=== PATIENT | female | born 1965 | race Caucasian/White ===

== ENCOUNTER 2022-06-27 20:47 | Emergency (ER) | payer BC, SELFPAY ==
--- NOTE | 2022-06-27 20:45 | RT.EKG_ITS ---
APPROVED REPORT Exam: Resting ECG Reason for Exam: chest pressure Patient Location: E HR:80 bpm ECG Measurements Heart Rate 80 AXIS WA 103 P -65 QRSd 79 QRS 60 QT 383 T 79 QTc 443 Conclusion NSR, no acute st changes
[2022-06-27 20:58] VITALS: BP 143/81; PULSE 90; RESP 20; O2SAT 96
--- NOTE | 2022-06-27 21:00 | DI.RAD_ITS ---
Exam(s) XR PORTABLE CHEST AP EXAM: XR PORTABLE CHEST AP CLINICAL HISTORY: cough, fever at home TECHNIQUE: 2D digital imaging was performed of the chest. One image was obtained. An AP view was ob tained. COMPARISON: No exams were available for comparison FINDINGS: MEDIASTINUM: Normal. HEART: Normal. PULMONARY VASCULATURE: Normal. LUNGS: There is a question of increased lung markings in the retrocardiac region on the left. No oth er focal consolidating infiltrates are seen. PLEURAL SPACE: No pleural effusion or pneumothorax. BONE:Within normal limits for the patient's age. OTHER FINDINGS:Normal. IMPRESSION: Increased lung markings in the left lung base posterior to the heart which may represent an infiltrat e. Please correlate clinically. PA and lateral view of the chest may be considered for further eval uation. DATA REPOSITORY: RADIATION DOSE DELIVERED:
--- NOTE | 2022-06-27 21:09 | ED.GENADUL_ITS ---
Discharge Plan Disposition Patient Disposition: Home Condition: Improving Discharge Details Clinical Impression: COVID-19 Primary Care Provider: None,None ED Provider: Leo Davies Home Meds and New Rx's Prescriptions: New hydrocodone-acetaminophen 5-325 mg tablet 1 tab PO BID PRN (Reason: pain) Qty: 5 0RF azithromycin 250 mg tablet 250 mg PO DAILY 4 Days Qty: 4 0RF Rx Instructions: start on day 2 of therapy Continued thyroid (pork) [[place] Thyroid] 60 mg Tablet 60 mg PO DAILY Discharge Instructions Instructions: Viral Syndrome (ED) Additional Instructions: Daily dose of vitamin C, vitamin D, and zinc may help your symptoms. Ibuprofen as needed for aches, pains or fever. Continue your efforts to decrease or eliminate smoking. May use the provided hydrocodone with Tylenol if needed for severe pain or coughing. Follow-up with regular doctor if not improved in 5 days time. Stand Alone Forms: Work Release Medical Decision Making 57-year-old female presents from home complaining of 4 days of cough, congestion, subjective fever and chills. Positive sick contacts at work. She is immunized against COVID and reports negative test at home. She reports some production of sputum with coughing. She is a smoker. Vital signs are unremarkable. No wheezing and she is oxygenating normally. Portable chest x-ray obtained. There is patchy left lower lobe infiltrate present. Viral swab positive for COVID. Patient consented for the use of a small number of hydrocodone if needed for cough and discomfort. She is not currently interested in the use of Paxlovid. We will add a Z-Alexi for suprainfection with bronchitis given that she is a smoker. Counseled on home care. HPI General Mode of arrival: ambulatory . Date/Time Provider Initiated Documentation: 06/27/22 20:52 . Limitations to Documentation: no limitations . Information obtained by: patient . History of Present Illness 57 year old F presents to the emergency department with the chief complaint of Cough, congestion, fever, described as moderate, and is localized to the chest. Patient started experiencing this day(s) and it has been constant. No relieving factors improve symptom(s), No exacerbating factors reported . Patient notes cough and fever/chills; denies shortness of breath. Patient did receive the following treatments prior to arrival, none Related Data Home Medications Medication Instructions Recorded Confirmed azithromycin 250 mg tablet 250 mg PO DAILY 4 days #4 tabs 06/27/22 hydrocodone 5 mg-acetaminophen 325 1 tab PO BID PRN pain #5 tabs 06/27/22 mg tablet thyroid (pork) 60 mg tablet 60 mg PO DAILY 06/27/22 06/27/22 ([place] Thyroid) Previous Rx's Medication Instructions Recorded azithromycin 250 mg tablet 250 mg PO DAILY 4 days #4 tabs 06/27/22 hydrocodone 5 mg-acetaminophen 325 1 tab PO BID PRN pain #5 tabs 06/27/22 mg tablet Allergies Allergy/AdvReac Type Severity Reaction Status Date / Time Sulfa (Sulfonamide Allergy Unverified 06/27/22 21:01 Antibiotics) General Stated Complaint: RespSymp KACIE: 3 Review of Systems Narrative: 6 systems reviewed and otherwise negative. Immunized against COVID. Sick contacts at work [facility] All Active Problems (Updated 06/27/22 @ 21:59 by Leo Davies MD) COVID-19 (Acute) Surgical History History of cholecystectomy History of hysterectomy History of tonsillectomy Social History Smoking/Tobacco Use Status: Current every day Tobacco Type: cigarettes Smoking risk assessment performed?: Yes Alcohol Intake: never Drug use: Never Substance use type: does not use Do you feel safe at home: Yes Do you feel safe in your relationship?: Yes Exam Narrative Exam Narrative: GEN: awake, alert, oriented 3. Pleasant, well groomed, interactive. HEAD: Normocephalic, atraumatic ENT: Mucous membranes moist, oropharynx unremarkable, tympanic membrane's clear bilaterally external ear exam unremarkable EYES: PERRL, EOMI NECK: Full ROM, no RENETTA, no menigismus CHEST/RESP: Mild tenderness posterior musculature, clear to auscultation bilateral, cough noted CARDIOVASCULAR: RRR, no murmur, rub alek. 2+ Rad pulse bilateral ABDOMEN: Soft, nontender, no mass. +Bowel sounds EXT: Full ROM, no edema, no rash Neuro: Grossly normal neurologic exam, conversant, interactive. Psych: Speech fluent, thoughts congruent, affect normal Course Vital Signs Vital signs: Vital Signs Pulse 90 06/27/22 20:58 Respiratory Rate 20 06/27/22 20:58 Blood Pressure 143/81 H 06/27/22 20:58 Pulse Oximetry 96 06/27/22 20:58 Pulse 90 06/27/22 20:58 Respiratory Rate 20 06/27/22 20:58 Respiratory Effort Normal, Non-Labored 06/27/22 21:04 Blood Pressure 143/81 H 06/27/22 20:58 Blood Pressure Position Sitting 06/27/22 20:58 Pulse Oximetry 96 06/27/22 20:58 Oxygen Delivery Method Room Air 06/27/22 20:58 Oxygen Flow Rate 0 06/27/22 20:58 Pain Level 8 06/27/22 20:58
[2022-06-27 21:17] VITALS: TEMP 37.3
[2022-06-27 21:52] LABS: Influenza A PCR Negative (Negative); Influenza B PCR Negative (Negative); RSV PCR Negative (Negative)
[2022-06-27 21:53] LABS: COVID-19 PCR Positive (Negative); Source Nasopharynx
--- NOTE | 2022-06-27 22:06 | DI.VRAD_ITS ---
PROCEDURE INFORMATION: Exam: XR Chest Exam date and time: 06/27/2022 9:28 PM Age: 57 years old Clinical indication: Cough and fever; Patient HX: Cough, fever at home TECHNIQUE: Imaging protocol: Radiologic exam of the chest. Views: 1 view. COMPARISON: No relevant prior studies available. FINDINGS: Lungs: Patchy infiltrate left lower lobe of the lung retrocardiac region may represent atelectasis versus pneumonia. The pulmonary vasculature is normal. Pleural spaces: There is no evidence of pneumothorax. There are no pleural effusions present. Heart/Mediastinum: The cardiac silhouette is within normal limits. The mediastinum is normal. Bones/joints: The spine, sternum, ribs, and pectoral girdles show no evidence of acute abnormality Other findings: There are no soft tissue masses or calcifications. IMPRESSION: Patchy infiltrate left lower lobe of the lung retrocardiac region may represent atelectasis versus pneumonia. Dictated and Authenticated by: Claudio Alberto MD. Ordering:KENNETH Bailey MD
[2022-06-27] MEDS: HYDROcodone 5/Acetaminophen 325 TAB PO (22:20)
[2022-06-27] MEDS: Azithromycin 250 MG TAB 500 MG PO (22:21)
[2022-06-27 22:27] VITALS: BP 139/86; PULSE 81; RESP 20; O2SAT 99
== END 2022-06-27 22:29 | disposition home or self-care (01) ==
PROVIDERS: Emergency Provider Emergency Medicine
DX: U07.1 COVID-19 (principal); F17.210 Nicotine dependence, cigarettes, uncomplicated
CPT/HCPCS: 87637; 93005; 99284; 71045; 93010; 99285

== ENCOUNTER 2022-08-17 09:46 | Emergency (ER) | payer BC, SELFPAY ==
[2022-08-17 09:48] VITALS: BP 173/86; PULSE 95; RESP 16; TEMP 36.6; O2SAT 98
--- NOTE | 2022-08-17 10:02 | ED.GENADUL_ITS ---
Discharge Plan Disposition Patient Disposition: Home Condition: Improving Discharge Details Clinical Impression: Low back pain, Right lumbar radiculopathy, Lumbar disc herniation Primary Care Provider: Unknown,Unknown ED Provider: Laxmi Ramirez Home Meds and New Rx's Prescriptions: New methocarbamol 500 mg tablet 500 mg PO Q6H PRN (Reason: muscle spasm) Qty: 14 0RF prednisone 20 mg tablet See Rx Instructions .ROUTE .COMPLEX Qty: 36 0RF Rx Instructions: Take 3 tabs daily for 6 days, then 2 tabs daily for 6 days, then 1 tab daily for 6 days. Continued [place] Thyroid 60 mg Tablet 60 mg PO DAILY cyclobenzaprine 5 mg Tablet 5 - 10 mg PO TID PRN Discharge Instructions Instructions: Lumbar Disc Herniation (ED), Low Back Strain (ED), Lumbar Radiculopathy (ED) Additional Instructions: Your MRI today noted severe central canal stenosis and narrowing at L3-4 secondary to degenerative disc changes as well as disc herniation at L3-4 but no evidence of acute concerning compression. Apply ice to the affected area several times daily for 20 minutes at a time. Alternate tylenol and motrin as needed and directed for pain. Take the oxycodone for pain not relieved with Tylenol or Motrin. Prescriptions for steroids and muscle relaxers have been sent electronically to your pharmacy. Follow-up with your primary care doctor in 1 week. Return to the emergency department with any worsening or new concerning symptoms. Discharge Data Discharge Date/Time-TO BE ENTERED AT DEPARTURE: 08/17/22 15:07 Discharge Physician: Laxmi Ramirez Medical Decision Making 57-year-old female with a history of morbid obesity, hypothyroidism and lumbar fusion 14 years ago presents for midline lower back pain with radiation of pain to her right buttock and leg and right posterior thigh tingling since a mechanical injury at work 1 month ago now with stool incontinence and saddle anesthesia over the past few days. Patient able to ambulate into the ED. She has tenderness to her midline and bilateral lumbar paraspinal region. She has no obvious focal deficits on exam. She has normal rectal tone and perineal sensation. Consider cauda equina syndrome. We will give a dose of IM Toradol, p.o. oxycodone, Valium and prednisone and refer for lumbar spine MRI. 1303 --patient reassessed and she feels better. MRI results pending. 1430 --MRI resulted and notes severe central canal stenosis and neural foraminal narrowing at L3-4 secondary to combination of degenerative disc changes and facet degenerative changes in addition to L3-4 broad-based posterior disc bulging. No evidence of compression per discussion with Dr. Quigley. 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 Patient reassessed and she feels better and feels comfortable going home. We will send a prescription for steroids and muscle relaxers to her pharmacy. She was given oxycodone bottle to go. Patient placed on care management list to arrange for a follow-up appointment with a primary care doctor in 1 to 2 weeks for reevaluation and for referral for physical therapy or cortisone injection if indicated. Medical Records Medical records reviewed: Yes I reviewed the patient's medical records. Imaging Data Radiologic Study: Radiologist's impression: MR LUMBAR SPINE WO CLINICAL HISTORY: ? low back pain s/p twisting inj; r/o cauda equina.? TECHNIQUE:? Multiplanar multisequence MRI of the Lumbar spine was performed. COMPARISON:? CR,XR XR PORTABLE CHEST AP from 06/27/2022 FINDINGS: Bones: The last intervertebral disc space is designated the L5/S1 level for the numbering purpose of this examination. ? Mild compression of the T11 vertebral body which appears old..? Alignment is satisfactory. The marrow signal characteristics are unremarkable. Cord: The conus tip ends at the T12 level. ? It is of normal size and signal intensity. T11-12: Marked loss of disc height and endplate osteophytes are severe left and moderate right neural foraminal narrowing.? No significant central canal stenosis. T12-L1: No disc herniations or bulges are present. No central spinal canal or neural foraminal stenosis. L1-2: No disc herniations or bulges are present. No central spinal canal or neural foraminal stenosis. L2-3: No disc herniations or bulges are present. No central spinal canal or neural foraminal stenosis. L3-4: Broad-based posterior disc bulging.? Prominent facet osteophytes and ligamentous hypertrophy combining with disc bulging to produce severe central canal stenosis.? [id number] bilateral neural foraminal narrowing. L4-5: Posterior fusion hardware no disc herniations or bulges are present. No central spinal canal or neural foraminal stenosis. L5-S1: Mild disc bulging.? Mild left neural foraminal narrowing.? No central canal stenosis. The visualized SI joints and sacrum are well maintained. Soft tissues: The paraspinal soft tissues are unremarkable. IMPRESSION: Posterior fusion at L4-5.? This level is unremarkable. Severe central stenosis canal stenosis and neural foraminal narrowing at L3-4 secondary to combination of degenerative disc changes and facet degenerative changes. HPI General Mode of arrival: ambulatory . Date/Time Provider Initiated Documentation: 08/17/22 10:00 . Limitations to Documentation: no limitations . Information obtained by: patient . HPI Narrative: Patient is a 57-year-old female with a history of obesity, hypothyroidism and lumbar fusion 14 years ago presents with midline lower back pain with radiation to her right leg for the past month after an injury at work. Patient states she was pushing a [employer] for a patient at [facility] when her foot became caught in the bars and she fell forward and onto a patient bed in order to avoid falling onto the patient. She states she had sudden onset of midline lower back and tailbone pain with radiation down her right buttock and leg down to her ankle. She states she also has intermittent tingling in her right posterior thigh. She states over the last few days she has also noticed tingling and numbness in the perineum and stool incontinence yesterday. She states she was seen at urgent care at the time of the injury and given prednisone and Flexeril which helped briefly but then the pain returned after she was finished. She has not had any imaging since this injury. She was driven here to the emergency department. Related Data Home Medications Medication Instructions Recorded Confirmed thyroid (pork) 60 mg tablet 60 mg PO DAILY 06/27/22 08/17/22 ([place] Thyroid) cyclobenzaprine 5 mg tablet 5 - 10 mg PO TID PRN 08/17/22 08/17/22 methocarbamol 500 mg tablet 500 mg PO Q6H PRN muscle spasm #14 08/17/22 tabs prednisone 20 mg tablet See Rx Instructions .Route 08/17/22 .COMPLEX #36 tabs Previous Rx's Medication Instructions Recorded methocarbamol 500 mg tablet 500 mg PO Q6H PRN muscle spasm #14 08/17/22 tabs prednisone 20 mg tablet See Rx Instructions .Route 04/13/23 .COMPLEX #36 tabs Allergies Allergy/AdvReac Type Severity Reaction Status Date / Time Sulfa (Sulfonamide Allergy Unverified 08/17/22 10:16 Antibiotics) General Stated Complaint: Nk/Back Pain KACIE: 3 Review of Systems All systems reviewed & are unremarkable except as noted in HPI and below Constitutional Constitutional: Reports as per HPI, Denies chills and Denies fever(s) Eyes Eyes: Denies blurry vision ENT Ears, Nose, Mouth, and Throat: Denies dizziness, Denies sore throat and Denies throat swelling Cardiovascular Cardiovascular: Denies chest pain and Denies dyspnea Respiratory Respiratory: Denies cough and Denies dyspnea Gastrointestinal Gastrointestinal: Denies abdominal pain, Reports fecal incontinence, Denies diarrhea and Denies vomiting Genitourinary Genitourinary: Denies hematuria, Denies dysuria and Reports urinary incontinence Musculoskeletal Musculoskeletal: Reports back pain, Denies numbness and Reports tingling Integumentary/Breasts Skin/Breast: Denies lesions and Denies rash Neurologic Neurologic: Denies dizziness, Denies localized weakness, Denies numbness and Reports tingling Allergic/Immunologic Allergic/Immunologic: Denies throat swelling PFSH All Active Problems (Updated 08/17/22 @ 14:50 by Laxmi Ramirez DO) Low back pain (Acute) Right lumbar radiculopathy (Acute) Lumbar disc herniation (Acute) COVID-19 (Acute) Medical History (Updated 08/17/22 @ 14:50 by Laxmi Ramirez DO) Hypothyroidism Surgical History (Updated 08/17/22 @ 10:46 by Laxmi Ramirez DO) History of cholecystectomy History of hysterectomy History of lumbar fusion History of tonsillectomy Social History Smoking/Tobacco Use Status: Current every day Tobacco Type: cigarettes Smoking risk assessment performed?: Yes Alcohol Intake: never Drug use: Never Substance use type: does not use Do you feel safe at home: Yes Do you feel safe in your relationship?: Yes Exam Const General: cooperative, healthy appearing and no acute distress Orientation: alert, awake and oriented x3 HENMT Head: normal to inspection Face and sinus: normal facial exam Eyes General: appearance normal, both eyes and all related structures Pupils: PERRL EOM: EOM intact bilaterally Neck Neck: normal visual inspection and No submandibular swelling Lymphatic: no lymphadenopathy noted Chest Chest: normal inspection of the chest and no tenderness Resp Effort & Inspection: normal respiratory effort and able to speak in complete sentences Auscultation: clear to auscultation bilaterally Cardio Rate: regular rate Rhythm: regular rhythm GI Inspection: normal to inspection Palpation: soft, not firm, not rigid and nontender Auscultation: hypoactive bowel sounds Rectal Exam - female: normal sphincter tone Back/Spine/Pelvis Thoracic/Lumbar Spine: thoracic and lumbar spine normal to inspection, paraspinal tenderness (b/l lumbar), No thoracic spinal tenderness and lumbar spinal tenderness Skin General skin exam: no rashes or lesions noted Neuro General: patient alert, patient awake, patient oriented x3, moves all extremities and no meningeal signs Cognition: normal cognition Speech: speech normal Motor: muscle tone normal throughout and strength 5/5 throughout Sensory Exam: no sensory deficits noted DTR's: Rt Patellar: 1+, Lt Patellar: 1+, Rt Ankle: 1+ and Lt Ankle: 1+ Plantar Reflexes: Equivocal: bilateral (negative babinski b/l ) Extrem General: normal to inspection, full ROM, capillary refill normal, no calf tenderness bilaterally and no edema Other: Bilateral distal lower extremity pulses intact. Psych Appearance: grossly normal Mental Status: mental status grossly normal Speech and Movement: speech and movement normal Affect: normal affect Course Vital Signs Vital signs: Vital Signs Temperature 97.9 F 08/17/22 09:48 Pulse 95 H 08/17/22 09:48 Respiratory Rate 16 08/17/22 09:48 Blood Pressure 173/86 H 08/17/22 09:48 Pulse Oximetry 98 08/17/22 09:48 Temperature 97.9 F 08/17/22 09:48 Temperature Source Skin 08/17/22 09:48 Pulse 95 H 08/17/22 09:48 Respiratory Rate 16 08/17/22 09:48 Blood Pressure 173/86 H 08/17/22 09:48 Blood Pressure Position Sitting 08/17/22 09:48 Pulse Oximetry 98 08/17/22 09:48 Oxygen Delivery Method Room Air 08/17/22 09:48 Oxygen Flow Rate 0 08/17/22 09:48 Pain Level 8 08/17/22 09:48
--- NOTE | 2022-08-17 10:30 | DI.MRI_ITS ---
Exam(s) MR LUMBAR SPINE WO EXAM: MR LUMBAR SPINE WO CLINICAL HISTORY: low back pain s/p twisting inj; r/o cauda equina. TECHNIQUE: Multiplanar multisequence MRI of the Lumbar spine was performed. COMPARISON: CR,XR XR PORTABLE CHEST AP from 06/27/2022 FINDINGS: Bones: The last intervertebral disc space is designated the L5/S1 level for the numbering purpose of this examination. Mild compression of the T11 vertebral body which appears old.. Alignment is sati sfactory. The marrow signal characteristics are unremarkable. Cord: The conus tip ends at the T12 level. It is of normal size and signal intensity. T11-12: Marked loss of disc height and endplate osteophytes are severe left and moderate right neural foraminal narrowing. No significant central canal stenosis. T12-L1: No disc herniations or bulges are present. No central spinal canal or neural foraminal stenos is. L1-2: No disc herniations or bulges are present. No central spinal canal or neural foraminal stenosis . L2-3: No disc herniations or bulges are present. No central spinal canal or neural foraminal stenosis . L3-4: Broad-based posterior disc bulging. Prominent facet osteophytes and ligamentous hypertrophy co mbining with disc bulging to produce severe central canal stenosis. [id number] bilateral neura l foraminal narrowing. L4-5: Posterior fusion hardware no disc herniations or bulges are present. No central spinal canal or neural foraminal stenosis. L5-S1: Mild disc bulging. Mild left neural foraminal narrowing. No central canal stenosis. The visualized SI joints and sacrum are well maintained. Soft tissues: The paraspinal soft tissues are unremarkable. IMPRESSION: Posterior fusion at L4-5. This level is unremarkable. Severe central stenosis canal stenosis and neural foraminal narrowing at L3-4 secondary to combinatio n of degenerative disc changes and facet degenerative changes. Findings called to Laxmi Ramirez, emergency department provider. DATA REPOSITORY:
[2022-08-17] MEDS: diazePAM 5 MG TAB PO (11:15)
[2022-08-17] MEDS: oxyCODONE 5 MG TAB PO (11:15)
[2022-08-17] MEDS: predniSONE 20 MG TAB 60 MG PO (11:15)
[2022-08-17] MEDS: Ketorolac 60 MG/2 ML VIAL IM (11:16)
[2022-08-17 15:08] VITALS: BP 144/85; PULSE 85; TEMP 36.6; O2SAT 96
--- NOTE | 2022-08-17 17:19 | NUR.NOTE ---
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
== END 2022-08-17 15:07 | disposition home or self-care (01) ==
PROVIDERS: Emergency Provider Physician Assistant
DX: M51.16 Intervertebral disc disorders with radiculopathy, lumbar region (principal); E03.9 Hypothyroidism, unspecified; R20.2 Paresthesia of skin; M48.02 Spinal stenosis, cervical region
CPT/HCPCS: 96372; 99284; 72148; J1885; J7512

== ENCOUNTER 2022-09-19 10:19 | Emergency (ER) | payer BC, SELFPAY ==
[2022-09-19 10:26] VITALS: BP 172/87; PULSE 97; RESP 15; TEMP 36.9; O2SAT 96
--- NOTE | 2022-09-19 10:50 | ED.GENADUL_ITS ---
Discharge Plan Disposition Patient Disposition: Home Condition: Stable Discharge Details Clinical Impression: Low back pain, Bilateral hand swelling, Hypokalemia Primary Care Provider: Magi,Local ED Provider: Tom Sanz Home Meds and New Rx's Prescriptions: New prednisone 10 mg tablet 10 mg PO DIRECTED Qty: 20 0RF Rx Instructions: 40mg x 2 days; then 30mg x2 days; then 20mg x2 days, then 10mg x2 days Continued [place] Thyroid 60 mg Tablet 60 mg PO DAILY cyclobenzaprine 5 mg Tablet 5 - 10 mg PO TID PRN5 Days Qty: 15 0RF Discontinued methocarbamol 500 mg tablet 500 mg PO Q6H PRN (Reason: muscle spasm) Qty: 14 0RF Patient Comments: RX complete 09/19/22 CT prednisone 20 mg tablet See Rx Instructions .ROUTE .COMPLEX Qty: 36 0RF Patient Comments: RX complete 09/19/22 CT Rx Instructions: Take 3 tabs daily for 6 days, then 2 tabs daily for 6 days, then 1 tab daily for 6 days. Discharge Instructions Instructions: Hypokalemia (ED), Lumbar Spinal Stenosis (ED), Lumbar Radiculopathy (ED) Additional Instructions: Please take ibuprofen over the counter. Take 600mg by mouth every 6 hours as needed for pain. Use lidocaine patches. These are available [id number]. Dose according to label. Please contact your primary care physician to arrange follow-up. Please follow-up with pain management. Return to the ER immediately for any worsening or new concerning symptoms. Medical Decision Making 1055 -- 57yo female here with 2 months of low back pain with radiation down right posterior leg. Patient seen here about a month ago for back pain with associated stool incontinence and had MRI that showed disc herniation and central canal stenosis with no signs of cauda equina. Stool incontinence has resolved. Pain had improved while she was on steroid. Pain now has returned. Patient neurologically intact on exam. 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 She will benefit from short-term follow-up with PCP and ideally referral to pain management. Patient also notes swelling of her hands bilaterally over the past day. She has not experienced this in the past. Patient denies history of renal impairment. 1245 --labs reviewed and creatinine normal. Mild hypokalemia noted. I will give potassium chloride 20 meq. patient requesting to restart prednisone taper. I will prescribe this. Patient seen by ED care management and arrange for appointment with [facility] tomorrow at 8:10 AM. This was discussed with the patient. She understands importance of follow-up. Lab Data Lab results reviewed: Yes I reviewed the patient's lab results. Labs: Laboratory Tests Range/Units 09/19/22 09/19/22 11:34 11:34 WBC (4.4-10.8) 10^3/uL 5.87 RBC (3.93-5.22) 10^6/uL 3.86 L Hgb (11.2-15.7) g/dL 12.2 Hct (36.0-46.0) % 35.8 L MCV (80-95) fL 93 MCH (27.0-33.0) pg 31.6 MCHC (32.0-36.0) % 34.1 RDW (11.7-14.6) % 13.8 Plt Count (130-400) 10^3/uL 293 MPV (8.0-11.0) fL 9.3 Immature Gran % 0.3 Neutrophils % 46.8 Lymphocytes % 41.6 Monocytes % 7.0 Eosinophils % 3.6 Basophils % 0.7 Nucleated RBC % (0.0-0.3) % 0.0 Absolute Neutrophils (1.2-6.7) 10^3/uL 2.75 Absolute Lymphocytes (1.2-3.4) 10^3/uL 2.44 Absolute Monocytes (0.1-0.8) 10^3/uL 0.41 Absolute Eosinophils (0.0-0.7) 10^3/uL 0.21 Absolute Basophils (0.0-0.2) 10^3/uL 0.04 Sodium (136-145) mmol/L 142 Potassium (3.5-5.1) mmol/L 3.3 L Chloride (98-107) mmol/L 108 H Carbon Dioxide (21.0-32.0) mmol/L 27.6 Anion Gap (3-11) mmol/L 6.4 BUN (7-18) mg/dL 10 Creatinine (0.55-1.02) mg/dL 0.7 Est GFR (CKD-EPI 2020) (mL/min/1.73m2) 100.19 Glucose (74-106) mg/dL 124 H Calcium (8.5-10.1) mg/dL 8.7 Total Bilirubin (0.2-1.0) mg/dL 0.3 AST (15-37) U/L 26 ALT (14-59) U/L 50 Alkaline Phosphatase (46-116) U/L 49 Total Protein (6.4-8.2) g/dL 6.7 Albumin (3.4-5.0) g/dL 3.5 HPI General Mode of arrival: ambulatory . Date/Time Provider Initiated Documentation: 09/19/22 10:32 . Limitations to Documentation: no limitations . Information obtained by: patient . HPI Narrative: 57-year-old female here with chief complaint of back pain. Patient was seen here on 08/17/2022 for 1 month of back pain after workplace injury with associated incontinence of stool. Patient had MRI of the lumbar spine which showed central canal stenosis with disc herniation. Patient notes she has had continued pain in her low back. She was initially on a taper course of steroid which seemed to help her discomfort. She completed this course and now pain is returning. Pain radiates down right posterior leg she does note stool incontinence resolved. Patient also notes some bilateral hand swelling over the past few days. Related Data Home Medications Medication Instructions Recorded Confirmed thyroid (pork) 60 mg tablet 60 mg PO DAILY 06/27/22 09/19/22 ([place] Thyroid) cyclobenzaprine 5 mg tablet 5 - 10 mg PO TID PRN 5 days #15 09/19/22 tabs prednisone 10 mg tablet 10 mg PO DIRECTED #20 tabs 09/19/22 Previous Rx's Medication Instructions Recorded cyclobenzaprine 5 mg tablet 5 - 10 mg PO TID PRN 5 days #15 09/19/22 tabs prednisone 10 mg tablet 10 mg PO DIRECTED #20 tabs 09/19/22 Allergies Allergy/AdvReac Type Severity Reaction Status Date / Time Sulfa (Sulfonamide Allergy Unverified 09/19/22 10:29 Antibiotics) General Stated Complaint: Nk/Back Pain KACIE: 3 Review of Systems All systems reviewed & are unremarkable except as noted in HPI and below Constitutional Constitutional: Denies fever(s) Musculoskeletal Musculoskeletal: Reports as per HPI PFSH All Active Problems (Updated 09/19/22 @ 12:50 by Tom Sanz MD) Low back pain (Acute) Bilateral hand swelling (Acute) Hypokalemia (Acute) COVID-19 (Acute) Medical History Hypothyroidism Surgical History History of cholecystectomy History of hysterectomy History of lumbar fusion History of tonsillectomy Social History Smoking/Tobacco Use Status: Current every day Tobacco Type: cigarettes Smoking risk assessment performed?: Yes Alcohol Intake: never Drug use: Never Substance use type: does not use Do you feel safe at home: Yes Do you feel safe in your relationship?: Yes Exam Const General: cooperative and no acute distress HENMT Mouth: moist mucous membranes Eyes Conjunctivae: normal conjunctivae Sclera: normal sclerae Neck Neck: trachea midline and supple Resp Auscultation: clear to auscultation bilaterally, no rales, no rhonchi and no wheezes Cardio Rate: regular rate and not tachycardic Rhythm: regular rhythm GI Palpation: soft, not firm, no guarding, no masses, not rigid and nontender Skin General skin exam: no rashes or lesions noted Neuro General: patient alert, patient awake and tone normal Extrem General: no edema Psych Appearance: grossly normal Mental Status: mental status grossly normal Course Vital Signs Vital signs: Vital Signs Temperature 36.9 C 09/19/22 10:26 Pulse 97 H 09/19/22 10:26 Respiratory Rate 15 09/19/22 10:26 Blood Pressure 172/87 H 09/19/22 10:26 Pulse Oximetry 96 09/19/22 10:26 Temperature 36.9 C 09/19/22 10:26 Temperature Source Temporal Artery Scan 09/19/22 10:26 Pulse 97 H 09/19/22 10:26 Respiratory Rate 15 09/19/22 10:26 Respiratory Effort Normal 09/19/22 10:28 Blood Pressure 172/87 H 09/19/22 10:26 Blood Pressure Position Sitting 09/19/22 10:26 Pulse Oximetry 96 09/19/22 10:26 Oxygen Delivery Method Room Air 09/19/22 10:26 Oxygen Flow Rate 0 09/19/22 10:26 Pain Level 10 09/19/22 10:26
[2022-09-19] MEDS: Ketorolac 30 MG/ML VIAL IM (11:27)
[2022-09-19] MEDS: Lidocaine 5% Patch 1 PATCH TP (11:27)
[2022-09-19 11:40] LABS: Abs Immature Grans 0.02 10^3/uL (0.0-0.06); Absolute Basophil Count 0.04 10^3/uL (0.0-0.2); Absolute Eosinophil Count 0.21 10^3/uL (0.0-0.7); Absolute Lymphocyte Count 2.44 10^3/uL (1.2-3.4); Absolute Monocyte Count 0.41 10^3/uL (0.1-0.8); Absolute Neutrophil Count 2.75 10^3/uL (1.2-6.7); Basophils % 0.7; Eosinophils % 3.6; HCT 35.8 % (36.0-46.0); HGB 12.2 g/dL (11.2-15.7); Immature Grans % 0.3; Lymphocytes % 41.6; MCH 31.6 pg (27.0-33.0); MCHC 34.1 % (32.0-36.0); MCV 93 fL (80-95); MPV 9.3 fL (8.0-11.0); Neutrophils % 46.8; Platelet Count 293 10^3/uL (130-400); RBC 3.86 10^6/uL (3.93-5.22); RDW 13.8 % (11.7-14.6); RDW-SD 46.7 fL; WBC 5.87 10^3/uL (4.4-10.8)
[2022-09-19 12:03] LABS: ALT 50 U/L (14-59); AST 26 U/L (15-37); Albumin 3.5 g/dL (3.4-5.0); Alkaline Phosphatase 49 U/L (46-116); Anion Gap 6.4 mmol/L (3-11); BUN 10 mg/dL (7-18); Bilirubin, Total 0.3 mg/dL (0.2-1.0); CO2 27.6 mmol/L (21.0-32.0); CREATININE 0.7 mg/dL (0.55-1.02); Calcium 8.7 mg/dL (8.5-10.1); Chloride 108 mmol/L (98-107); Estimated GFR 100.19 (mL/min/1.73m2); Glucose 124 mg/dL (74-106); Potassium 3.3 mmol/L (3.5-5.1); Sodium 142 mmol/L (136-145); Total Protein 6.7 g/dL (6.4-8.2)
[2022-09-19] MEDS: Potassium Chloride 20 MEQ TABCR PO (13:00)
[2022-09-19 13:02] VITALS: BP 154/85; PULSE 82; RESP 18; O2SAT 97
== END 2022-09-19 13:11 | disposition home or self-care (01) ==
PROVIDERS: Emergency Provider Student in an Organized Health Care Education/Training Program
DX: M54.59 Other low back pain (principal); R22.33 Localized swelling, mass and lump, upper limb, bilateral; E87.6 Hypokalemia
CPT/HCPCS: 80053; 96372; 99284; 85025; J1885

== ENCOUNTER 2022-11-13 18:39 | Emergency (ER) | payer BC, SELFPAY ==
[2022-11-13 18:44] VITALS: BP 154/74; PULSE 94; RESP 18; TEMP 37.3; O2SAT 97
--- NOTE | 2022-11-13 19:30 | RT.EKG_ITS ---
APPROVED REPORT Exam: Resting ECG Reason for Exam: Patient Location: E HR:86 bpm ECG Measurements Heart Rate [address] 138 P 61 QRSd 83 QRS 67 QT 376 T 109 QTc 452 Conclusion Sinus rhythm...normal P axis, V-rate 60- 99
[2022-11-13 20:04] VITALS: RESP 18
[2022-11-13 20:09] LABS: Abs Immature Grans 0.02 10^3/uL (0.0-0.06); Absolute Basophil Count 0.08 10^3/uL (0.0-0.2); Absolute Eosinophil Count 0.37 10^3/uL (0.0-0.7); Absolute Lymphocyte Count 2.48 10^3/uL (1.2-3.4); Absolute Monocyte Count 0.47 10^3/uL (0.1-0.8); Basophils % 1.1; Eosinophils % 5.2; HCT 39.4 % (36.0-46.0); HGB 13.7 g/dL (11.2-15.7); Immature Grans % 0.3; Lymphocytes % 34.8; MCH 31.2 pg (27.0-33.0); MCHC 34.8 % (32.0-36.0); MCV 90 fL (80-95); MPV 9.2 fL (8.0-11.0); Monocytes % 6.6; Platelet Count 323 10^3/uL (130-400); RBC 4.39 10^6/uL (3.93-5.22); RDW 12.9 % (11.7-14.6); RDW-SD 42.4 fL; WBC 7.12 10^3/uL (4.4-10.8)
[2022-11-13 20:29] LABS: ALT 44 U/L (14-59); AST 29 U/L (15-37); Albumin 4.1 g/dL (3.4-5.0); Alkaline Phosphatase 62 U/L (46-116); Anion Gap 10.7 mmol/L (3-11); BUN 12 mg/dL (7-18); Bilirubin, Total 0.3 mg/dL (0.2-1.0); CO2 27.3 mmol/L (21.0-32.0); CREATININE 0.7 mg/dL (0.55-1.02); Calcium 9.2 mg/dL (8.5-10.1); Chloride 104 mmol/L (98-107); Estimated GFR 100.19 (mL/min/1.73m2); Glucose 109 mg/dL (74-106); Potassium 4.1 mmol/L (3.5-5.1); Sodium 142 mmol/L (136-145); Total Protein 7.3 g/dL (6.4-8.2); Troponin I < 50 ng/L (<or=60)
--- NOTE | 2022-11-13 20:45 | DI.RAD_ITS ---
Exam(s) XR CHEST 2V PA LATERAL EXAM: XR CHEST 2V PA LATERAL CLINICAL HISTORY: cough. TECHNIQUE: 2D digital imaging was performed. COMPARISON: CR,XR XR PORTABLE CHEST AP from 06/27/2022 FINDINGS: 2 views: Heart size is normal. The mediastinum is not widened. Lungs are clear. No infiltrates nor pleural effusions. IMPRESSION: No acute pulmonary findings. DATA REPOSITORY: RADIATION DOSE DELIVERED:
[2022-11-13] MEDS: predniSONE 20 MG TAB 40 MG PO (21:30)
[2022-11-13 22:04] LABS: FREE T4 0.67 ng/dL (0.76-1.46)
--- NOTE | 2022-11-13 22:12 | DI.VRAD_ITS ---
PROCEDURE INFORMATION: Exam: XR Chest Exam date and time: 11/13/2022 9:14 PM Age: 57 years old Clinical indication: Cough TECHNIQUE: Imaging protocol: Radiologic exam of the chest. Views: 2 views. COMPARISON: XR PORTABLE CHEST AP 06/27/2022 9:28 PM FINDINGS: Lungs: Normal. Pleural spaces: Unremarkable. No pleural effusion. No pneumothorax. Heart/Mediastinum: Normal. Bones/joints: No acute abnormality. IMPRESSION: No acute findings. Dictated and Authenticated by: Duane Busby MD. Ordering:GERARDO Chavez MD
[2022-11-13] MEDS: Acetaminophen 325 MG TAB 650 MG PO (22:55)
[2022-11-13 23:05] LABS: Troponin I < 50 ng/L (<or=60)
--- NOTE | 2022-11-13 23:11 | W.ED.GENAD ---
Discharge Plan Disposition Patient Disposition: Home Condition: Stable Discharge Details Clinical Impression: Headache, Malaise Primary Care Provider: Magi,Local ED Provider: Kathy Singer Home Meds and New Rx's Prescriptions: New doxycycline hyclate 100 mg tablet 100 mg PO BID Qty: 20 0RF prednisone 20 mg tablet 40 mg PO ONCE Qty: 10 0RF Continued [place] Thyroid 60 mg Tablet 60 mg PO DAILY omeprazole 40 mg capsule,delayed release(DR/EC) 40 mg PO DAILY Patient Comments: TAKE ONE CAPSULE BY MOUTH EVERY MORNING gabapentin 100 mg capsule 300 mg PO DAILY Patient Comments: TAKE ONE TO THREE CAPSULES BY MOUTH THREE TIMES A DAY NEEDED FOR PAIN fluoxetine 20 mg capsule 40 mg PO DAILY Patient Comments: TAKE TWO CAPSULES BY MOUTH EVERY DAY cyclobenzaprine 5 mg Tablet 5 - 10 mg PO TID PRN5 Days Qty: 15 0RF Patient Comments: no longer taking Discharge Instructions Instructions: General Headache (ED) Additional Instructions: Take antibiotics as prescribed Take the prednisone as prescribed, follow-up with your doctor when you return home Please return earlier should you have new or worsening complaints You have been treated empirically for Lyme, we will let you know if your tick panel is positive Discharge Data Discharge Date/Time-TO BE ENTERED AT DEPARTURE: 11/13/22 23:23 Medical Decision Making 57-year-old female presenting with jaw pain, denies any fever or chills. Left jaw pain, reproducible over the TMJ region Diagnostic labs including repeat troponin does not show evidence of acute abnormality Uvula midline, oropharynx patent Patient in no acute distress, low suspicion for cardiac etiology of patient's complaints Suspect her symptoms are combination of factors but I will treat her for Lyme and that she did have an engorged tick on her a month ago She also has had worsening of her back pain, she has history of lumbar radiculopathy, will place on prednisone Her blood pressure is stable and she is no longer significantly hypertensive, no antihypertensives were initiated during this encounter Patient is alert, oriented, of decisional capacity Return precautions reviewed and patient expressed understanding HPI General Date/Time Provider Initiated Documentation: 11/13/22 19:03. HPI Narrative: This 57-year-old female presents with jaw pain and that radiates to top of her head. She had her blood pressure checked at work and it was high and so she was told to come to the emergency department. States she had general malaise and myalgias. She denies any fever or chills. She does states she was bitten by a tick approximately a month ago. She denies any rashes or lesions. She has not changed her medications. 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 States she has pain when she opens or closes her jaw. She also has some left ear pain. She denies any dizziness or significant headache. She has a history of intermittent headaches. She denies sore throat. Related Data Home Medications Medication Instructions Recorded Confirmed thyroid (pork) 60 mg tablet 60 mg PO DAILY 06/27/22 11/13/22 ([place] Thyroid) cyclobenzaprine 5 mg tablet 5 - 10 mg PO TID PRN 5 days #15 09/19/22 tabs doxycycline hyclate 100 mg tablet 100 mg PO BID #20 tabs 11/13/22 fluoxetine 20 mg capsule 40 mg PO DAILY 11/13/22 11/13/22 gabapentin 100 mg capsule 300 mg PO DAILY 11/13/22 11/13/22 omeprazole 40 mg capsule,delayed 40 mg PO DAILY 11/13/22 11/13/22 release prednisone 20 mg tablet 40 mg PO ONCE #10 tabs 11/13/22 Previous Rx's Medication Instructions Recorded cyclobenzaprine 5 mg tablet 5 - 10 mg PO TID PRN 5 days #15 09/19/22 tabs doxycycline hyclate 100 mg tablet 100 mg PO BID #20 tabs 11/13/22 prednisone 20 mg tablet 40 mg PO ONCE #10 tabs 11/13/22 Allergies Allergy/AdvReac Type Severity Reaction Status Date / Time Sulfa (Sulfonamide Allergy Unverified 11/13/22 18:48 Antibiotics) General Stated Complaint: GenMedical KACIE: 4 PFSH All Active Problems (Updated 11/13/22 @ 23:11 by VENUS Woo) Headache (Acute) Malaise (Acute) COVID-19 (Acute) Medical History Hypothyroidism Surgical History History of cholecystectomy History of hysterectomy History of lumbar fusion History of tonsillectomy Social History Smoking/Tobacco Use Status: Current every day Tobacco Type: cigarettes Smoking risk assessment performed?: Yes Alcohol Intake: never Drug use: Never Substance use type: does not use Do you feel safe at home: Yes Do you feel safe in your relationship?: Yes Course Vital Signs Vital signs: Vital Signs Temperature 37.3 C 11/13/22 18:44 Pulse 94 H 11/13/22 18:44 Respiratory Rate 18 11/13/22 18:44 Blood Pressure 154/74 H 11/13/22 18:44 Pulse Oximetry 97 11/13/22 18:44 Temperature 37.3 C 11/13/22 18:44 Temperature Source Skin 11/13/22 18:44 Pulse 94 H 11/13/22 18:44 Respiratory Rate 18 11/13/22 20:04 Respiratory Effort Normal, Non-Labored 11/13/22 20:04 Respiratory Depth Normal 11/13/22 20:04 Respiratory Pattern Normal 11/13/22 20:04 Blood Pressure 154/74 H 11/13/22 18:44 Blood Pressure Position Sitting 11/13/22 18:44 Pulse Oximetry 97 11/13/22 18:44 Oxygen Delivery Method Room Air 11/13/22 18:44 Oxygen Flow Rate 0 11/13/22 18:44 Pain Level 9 11/13/22 18:44 Lab/Test Results Lab/Test Results: Laboratory Tests Range/Units 11/13/22 11/13/22 11/13/22 20:05 20:05 20:05 WBC (4.4-10.8) 10^3/uL 7.12 RBC (3.93-5.22) 10^6/uL 4.39 Hgb (11.2-15.7) g/dL 13.7 Hct (36.0-46.0) % 39.4 MCV (80-95) fL 90 MCH (27.0-33.0) pg 31.2 MCHC (32.0-36.0) % 34.8 RDW (11.7-14.6) % 12.9 Plt Count (130-400) 10^3/uL 323 MPV (8.0-11.0) fL 9.2 Immature Gran % 0.3 Neutrophils % 52.0 Lymphocytes % 34.8 Monocytes % 6.6 Eosinophils % 5.2 Basophils % 1.1 Nucleated RBC % (0.0-0.3) % 0.0 Absolute Neutrophils (1.2-6.7) 10^3/uL 3.70 Absolute Lymphocytes (1.2-3.4) 10^3/uL 2.48 Absolute Monocytes (0.1-0.8) 10^3/uL 0.47 Absolute Eosinophils (0.0-0.7) 10^3/uL 0.37 Absolute Basophils (0.0-0.2) 10^3/uL 0.08 Sodium (136-145) mmol/L 142 Potassium (3.5-5.1) mmol/L 4.1 Chloride (98-107) mmol/L 104 Carbon Dioxide (21.0-32.0) mmol/L 27.3 Anion Gap (3-11) mmol/L 10.7 BUN (7-18) mg/dL 12 Creatinine (0.55-1.02) mg/dL 0.7 Est GFR (CKD-EPI 2020) (mL/min/1.73m2) 100.19 Glucose (74-106) mg/dL 109 H Calcium (8.5-10.1) mg/dL 9.2 Total Bilirubin (0.2-1.0) mg/dL 0.3 AST (15-37) U/L 29 ALT (14-59) U/L 44 Alkaline Phosphatase (46-116) U/L 62 Troponin I (<or=60) ng/L < 50 Total Protein (6.4-8.2) g/dL 7.3 Albumin (3.4-5.0) g/dL 4.1 TSH (0.36-3.74) uIU/mL 4.30 H Free T4 (0.76-1.46) ng/dL 0.67 L Range/Units 11/13/22 22:35 WBC (4.4-10.8) 10^3/uL RBC (3.93-5.22) 10^6/uL Hgb (11.2-15.7) g/dL Hct (36.0-46.0) % MCV (80-95) fL MCH (27.0-33.0) pg MCHC (32.0-36.0) % RDW (11.7-14.6) % Plt Count (130-400) 10^3/uL MPV (8.0-11.0) fL Immature Gran % Neutrophils % Lymphocytes % Monocytes % Eosinophils % Basophils % Nucleated RBC % (0.0-0.3) % Absolute Neutrophils (1.2-6.7) 10^3/uL Absolute Lymphocytes (1.2-3.4) 10^3/uL Absolute Monocytes (0.1-0.8) 10^3/uL Absolute Eosinophils (0.0-0.7) 10^3/uL Absolute Basophils (0.0-0.2) 10^3/uL Sodium (136-145) mmol/L Potassium (3.5-5.1) mmol/L Chloride (98-107) mmol/L Carbon Dioxide (21.0-32.0) mmol/L Anion Gap (3-11) mmol/L BUN (7-18) mg/dL Creatinine (0.55-1.02) mg/dL Est GFR (CKD-EPI 2020) (mL/min/1.73m2) Glucose (74-106) mg/dL Calcium (8.5-10.1) mg/dL Total Bilirubin (0.2-1.0) mg/dL AST (15-37) U/L ALT (14-59) U/L Alkaline Phosphatase (46-116) U/L Troponin I (<or=60) ng/L < 50 Total Protein (6.4-8.2) g/dL Albumin (3.4-5.0) g/dL TSH (0.36-3.74) uIU/mL Free T4 (0.76-1.46) ng/dL
[2022-11-13 23:21] VITALS: BP 171/83; PULSE 85; RESP 16; TEMP 37; O2SAT 93
[2022-11-13] MEDS: Doxycycline Hyclate 100 MG CAP PO (23:22)
[2022-11-13] MEDS: Ketorolac 15 MG/ML VIAL IVP (23:23)
[2022-11-15 11:11] LABS: Lyme Ab w Rflx to Lyme Confirm Negative (Negative)
[2022-11-16 21:32] LABS: Anaplasma phagocytophilum Negative (Negative); B. miyamotoi PCR Negative (Negative); Babesia divergens/MO-1 Negative (Negative); Babesia duncani Negative (Negative); Babesia microti Negative (Negative); Ehrlichia chaffeensis Negative (Negative); Ehrlichia ewingii/canis Negative (Negative); Ehrlichia muris eauclairensis Negative (Negative)
== END 2022-11-13 23:23 | disposition home or self-care (01) ==
PROVIDERS: Emergency Medicine; Emergency Provider Physician Assistant
DX: R51.9 Headache, unspecified (principal); R53.81 Other malaise
CPT/HCPCS: 36415; 80053; 87798; 93005; 96374; 99284; 71046; 84439; 84443; 84484; 85025; 86618; 93010; J1885; J7512